=== PATIENT | female | born 1955 | race Caucasian/White ===

== ENCOUNTER → 2016-09-13 | Outpatient (CLI) | payer OTHER ==
[~2016-09-13] MED LIST: ASCAUNK PO; ASPCH81X PO; CALCCHW57 PO; CHOL100027 PO; DICL1GEL12 TOP; FLUOCINOLONE TOP; GLUC1CHW PO; LACT3000 PO; LEVO112T4 PO; LEVO150T PO; MECL1TAB42 PO; MULTTAB58 PO
[2016-09-13 17:35] LABS: THYROID STIMULATING HORMONE 0.108 uIu/ml (0.300-4.500)
== END | disposition home or self-care (01) ==
LOC: C.LABBC 13:35
PROVIDERS: ATTEND Internal Medicine Endocrinology, Diabetes & Metabolism
DX: E03.9 Hypothyroidism, unspecified (principal)

== ENCOUNTER → 2016-09-29 | Outpatient (CLI) | payer OTHER ==
--- NOTE | 2016-09-30 13:25 | MAMMOGRAPHY REPORT ---
BILATERAL DIGITAL SCREENING MAMMOGRAM TOMOSYNTHESIS WITH CAD: 09/29/2016 TECHNIQUE: Breast tomosynthesis in addition to standard 2D mammography was performed. Current study was also evaluated with a Computer Aided Detection (CAD) system. COMPARISON: Comparison is made to exams dated: 09/24/2015 mammogram, 07/23/2014 mammogram, 03/08/2012 mammogram, 03/03/2011 mammogram, 03/14/2013 mammogram, and 02/12/2010 mammogram - [facility] [address] BREAST COMPOSITION: The tissue of both breasts is almost entirely fatty. FINDINGS: No suspicious masses, calcifications, or areas of architectural distortion are noted in e ither breast. There has been no significant interval change compared to prior exams. Scattered bilat eral benign-appearing calcifications are not significantly changed. IMPRESSION: ACR BI-RADS CATEGORY 2: BENIGN There is no mammographic evidence of malignancy. A 1 year screening mammogram is recommended. The p atient will receive written notification of the results. Approximately 10% of breast cancers are not detected with mammography. A negative mammographic repor t should not delay biopsy if a clinically suggestive mass is present. Jazlyn Paredes M.D. ah/:09/30/2016 07:42:43 Storage Solutions Architect: Ángela NORIEGA(Antony)(Deshawn), [facility] [address] letter sent: Normal 1/2 BI-RADS Code: ACR BI-RADS Category 2: Benign
== END | disposition home or self-care (01) ==
LOC: C.MAMM 17:03
PROVIDERS: ATTEND Obstetrics & Gynecology
DX: Z12.31 Encounter for screening mammogram for malignant neoplasm of breast (principal)

== ENCOUNTER → 2016-11-09 | Outpatient (CLI) | payer OTHER ==
[2016-11-09 11:19] LABS: THYROID STIMULATING HORMONE 1.09 uIu/ml (0.300-4.500)
== END | disposition home or self-care (01) ==
LOC: C.LABBC 08:31
PROVIDERS: ATTEND Physician Assistant
DX: E03.9 Hypothyroidism, unspecified (principal)

== ENCOUNTER → 2016-12-01 | Outpatient (CLI) | payer OTHER | END | disposition home or self-care (01) | LOC: C.PAPS 12:21 | PROVIDERS: ATTEND Obstetrics & Gynecology | DX: Z12.4 Encounter for screening for malignant neoplasm of cervix (principal) ==

== ENCOUNTER → 2017-02-17 | Outpatient (CLI) | payer OTHER ==
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
== END | disposition home or self-care (01) ==
LOC: C.RADBC 11:02
PROVIDERS: ATTEND Physician Assistant
DX: M79.672 Pain in left foot (principal)

== ENCOUNTER → 2017-02-25 | Outpatient (CLI) | payer OTHER ==
[2017-02-25 16:39] LABS: MEAN CELL VOLUME 92.4 fL (80-100); MEAN CORPUSCULAR HEMOGLOBIN 30.9 pg (25-34); MEAN CORPUSCULAR HGB CONC 33.5 g/dl (32-36); MEAN PLATELET VOLUME 11.5 fL (7.4-10.4); PLATELET COUNT 199 K/uL (130-400); RED BLOOD COUNT 4.33 M/uL (4.2-5.4); WHITE BLOOD COUNT 7.07 K/uL (4.8-10.8)
[2017-02-25 16:50] LABS: BLOOD UREA NITROGEN 14 mg/dl (7-18); BUN/CREATININE RATIO 15.4 (10-20); CALCIUM 9.1 mg/dl (8.5-10.1); CARBON DIOXIDE 30 mmol/L (21-32); CHLORIDE 104 mmol/L (98-107); GLUCOSE 102 mg/dl (70-99); POTASSIUM 3.8 mmol/L (3.5-5.1); SODIUM 141 mmol/L (136-145)
== END | disposition home or self-care (01) ==
LOC: C.LABBC 14:36
PROVIDERS: ATTEND Surgery
DX: D12.6 Benign neoplasm of colon, unspecified (principal); Z01.818 Encounter for other preprocedural examination

== ENCOUNTER → 2017-03-28 | Day surgery (SDC) | payer OTHER ==
[2017-03-07 08:14] VITALS: Ht 154.9 cm; Wt 83.4 kg
[~2017-03-28] VITALS: Ht 154.9 cm; Wt 83.4 kg
[~2017-03-28] MED LIST changes: -ASCAUNK PO; +ATROPINE SULFATE 0.1 MG/ML 5ML SYR IV PRN; +EpHEDrine SULFATE INJ 50 MG/ML AMP IV PRN; -FLUOCINOLONE TOP; +LACTATED RINGER'S 1000ML 1,000 ML IV SCH; -LEVO150T PO; +LIDOCAINE HCL 2% 2 ML VIAL (20MG/ML) ONE; +PROPOFOL IV EMULSION 10 MG/ML 20 ML VIAL IV ONE
[2017-03-28 07:34] VITALS: BP 116/56; PULSE 46; TEMP 36.8; O2SAT 100
--- NOTE | 2017-03-28 08:32 | History & Physical Bridge Note ---
H&P Re-Evaluation Bridge Note: I have examined the patient, reviewed the History & Physical and in the interval since the performance of the History & Physical I have noted the following changes of clinical significance: No changes noted
--- NOTE | 2017-03-28 09:24 | GI REPORT ---
Procedure Date: 03/28/2017 8:41 AM Procedure: Colonoscopy Indications: Family history of colon cancer in a first-degree relative, Personal history of colonic polyps Medicines: Propofol per Anesthesia Complications: No immediate complications. Estimated Blood Loss: Estimated blood loss: none. Procedure: Pre-Anesthesia Assessment: - The risks and benefits of the procedure and the sedation options and risks were discussed with the patient. All questions were answered and informed consent was obtained. - Patient identification and proposed procedure were verified prior to the procedure by the physician, the nurse and the land inspector. The procedure was verified in the pre-procedure area in the procedure room. - ASA Grade Assessment: II - A patient with mild systemic disease. After I obtained informed consent, the scope was passed under direct vision. Throughout the procedure, the patient's blood pressure, pulse, and oxygen saturations were monitored continuously. The On-site loaner was introduced through the anus and advanced to the cecum, identified by appendiceal orifice and ileocecal valve. The colonoscopy was performed without difficulty. The patient tolerated the procedure well. The quality of the bowel preparation was good. Findings: The digital rectal exam was normal. The colon (entire examined portion) appeared normal. Impression: - The entire examined colon is normal. - No specimens collected. Recommendation: - Discharge patient to home. - Repeat colonoscopy in 5 years for surveillance. - Return to my office in 2 weeks if any questions. Wallace Douglas M.D. Wallace Douglas MD 03/28/2017 9:22:59 AM This report has been signed electronically. Note Initiated On: 03/28/2017 8:41 AM I attest to the content of the Intraoperative Record and orders documented therein, exceptions below
[2017-03-28 09:55] VITALS: BP 108/49; PULSE 60; TEMP 36.6; O2SAT 99
--- NOTE | 2017-03-28 10:10 | Anesthesiology Progress Note ---
Anesthesia Post Op Note Date & Time Mar 28, 2017 at 10:10 Vital Signs Pain Intensity: 0 Vital Signs Past 12 Hours Date Time Temp Pulse Resp B/P (MAP) Pulse Ox O2 Delivery O2 Flow Rate FiO2 03/28/17 09:45 36.4 64 17 113/52 100 Nasal Cannula 2 03/28/17 09:35 58 14 104/48 100 Nasal Cannula 2 03/28/17 09:27 36.6 61 18 111/62 100 Nasal Cannula 2 03/28/17 07:34 36.8 46 16 116/56 (76) 100 Room Air Notes Mental Status: alert / awake / arousable, participated in evaluation Pt Amnestic to Procedure: Yes Nausea / Vomiting: adequately controlled Pain: adequately controlled Airway Patency, RR, SpO2: stable & adequate BP & HR: stable & adequate Hydration State: stable & adequate Anesthetic Complications: no major complications apparent
[2017-03-28 10:30] VITALS: BP 107/44; PULSE 60; TEMP 36.3; O2SAT 95
[2017-03-28 10:55] VITALS: BP 121/53; PULSE 62; TEMP 36.6; O2SAT 98
--- NOTE | 2017-03-28 11:06 | Discharge Instructions ---
Endoscopy Patient Instructions Date / Procedure(s) Performed Mar 28, 2017. Colonoscopy Allergy Information Coded Allergies: Amoxicillin (Verified Allergy, Severe, HIVES, TROUBLE BREATHING, 03/28/17) NSAIDs (Verified Allergy, Severe, RESP FAILURE, 03/28/17) Penicillins (Verified Allergy, Severe, RESP FAILURE, 03/28/17) Ibuprofen (Verified Allergy, Intermediate, RASH, 03/28/17) Shrimp (Verified Allergy, Intermediate, Lip/Facial Swelling, 03/28/17) Pt reported allergy to RD during 03/29 visit. Stated that she does sometimes eat shrimp. Oxycodone (Verified Adverse Reaction, Severe, NAUSEA, 03/28/17) Discharge Date / Findings Mar 28, 2017. Normal colon Provider Instructions Activity Restrictions - No exercising or heavy lifting for 24 hours. - Do not drink alcohol the day of the procedure. - Do not drive a car or operate machinery until the day after the procedure. - Do not make any important decisions or sign important papers in 24 hours after the procedure. Following Day: - Return to full activity which may include returning to work/school. Diet Start your diet with liquids and light foods (jello, soup, juice, toast). Then eat your usual diet if not nauseated. Treatment For Common After Affects For mild abdominal pain, bloating, or excessive gas: - Rest - Eat lightly - Lie on right side Follow-Up Information Follow-up with as scheduled Anesthesia Information What You Should Know You have had a procedure that required some medicine to reduce anxiety and discomfort. This treatment is called moderate sedation. After receiving the treatment, you may be sleepy, but you will be able to breathe on your own. The effects of the treatment may last for several hours. Follow these instructions along with Activity/Diet recommendations noted above: * Do NOT do anything where dizziness or clumsiness would be dangerous. * Rest quietly at home today, then you can be up and about tomorrow. * Have a responsible person stay with you the rest of today. * You may have had an I.V. today. If so, you may take the dressing off later today. Recommendations Call your doctor if: * Trouble breathing * Continuous vomiting for more than 24 hours * Temperature above 101 degrees * Severe abdominal pain or bloating * Pain not relieved by pain medicine ordered * There is increased drainage or redness from any incision * A large amount of rectal bleeding greater than 2-3 tablespoons. (If you had a polyp/s removed or have hemorrhoids, a small amount of blood - from the rectum is to be expected.) * You have any unanswered questions or concerns. IN THE EVENT OF A SERIOUS EMERGENCY, GO TO THE NEAREST EMERGENCY ROOM Your discharge instructions were prepared by provider Wallace Douglas. Patient Instructions Signature Page Dee Back Patient (or Guardian) Signature/Date: I have read and understand the instructions given to me by my caregivers. Caregiver/RN/Doctor Signature/Date: The above-named patient and/or guardian has received patient instructions on this date. + Original Patient Signature Page (only) stays with chart. Please make copy for patient.
== END | disposition home or self-care (01) ==
LOC: C.ACU 07:01
PROVIDERS: ATTEND Surgery
DX: Z86.010 Personal history of colon polyps (principal); Z80.0 Family history of malignant neoplasm of digestive organs; K21.9 Gastro-esophageal reflux disease without esophagitis; F32.9 Major depressive disorder, single episode, unspecified; E03.9 Hypothyroidism, unspecified; E66.9 Obesity, unspecified; M17.10 Unilateral primary osteoarthritis, unspecified knee; Z79.82 Long term (current) use of aspirin; Z87.891 Personal history of nicotine dependence

== ENCOUNTER → 2017-06-14 | Outpatient (CLI) | payer OTHER ==
[~2017-06-14] MED LIST changes: -ATROPINE SULFATE 0.1 MG/ML 5ML SYR IV PRN; -EpHEDrine SULFATE INJ 50 MG/ML AMP IV PRN; -LACTATED RINGER'S 1000ML 1,000 ML IV SCH; -LIDOCAINE HCL 2% 2 ML VIAL (20MG/ML) ONE; -PROPOFOL IV EMULSION 10 MG/ML 20 ML VIAL IV ONE
--- NOTE | 2017-06-14 12:52 | DIAGNOSTIC IMAGING REPORT ---
L-SPINE MIN 4 VIEWS ROUTINE HISTORY: 61 years-old Female LUMBAR FACET SYNDROME COMPARISON: CT abdomen and pelvis 11/16/2015 TECHNIQUE: 5 views of the lumbar spine FINDINGS: The ribs at T12 are hypoplastic. Degenerative changes are seen within the hips and SI joints. Cholecystectomy clips noted. There is no acute fracture or dislocation. Moderate intervertebral disc space narrowing with prominent endplate spurring redemonstrated at T11-T12 and to lesser extent at T10-T11. No compression deformity. Moderate intervertebral disc space narrowing at L5-S1. Moderate facet arthrosis of the lower lumbar levels. IMPRESSION: 1. No acute fracture or subluxation. 2. Degenerative changes as above. The above report was generated using voice recognition software. It may contain grammatical, syntax or spelling errors. Electronically signed by: Tai Bojorquez M.D. 06/14/2017 12:50 PM Dictated Date/Time: 06/14/2017 12:47 PM
== END | disposition home or self-care (01) ==
LOC: C.RADBC 12:29
PROVIDERS: ATTEND Physician Assistant Medical
DX: M53.86 Other specified dorsopathies, lumbar region (principal)

== ENCOUNTER → 2017-07-14 | Outpatient (CLI) | payer OTHER ==
[2017-07-14 14:59] LABS: THYROID STIMULATING HORMONE 0.115 uIu/ml (0.300-4.500)
== END | disposition home or self-care (01) ==
LOC: C.LABBC 11:10
PROVIDERS: ATTEND Physician Assistant
DX: E03.9 Hypothyroidism, unspecified (principal)

== ENCOUNTER → 2017-09-23 | Outpatient (CLI) | payer OTHER | END | disposition home or self-care (01) | LOC: C.LABBC 11:01 | PROVIDERS: ATTEND Physician Assistant | DX: E03.9 Hypothyroidism, unspecified (principal) ==

== ENCOUNTER → 2017-12-06 | Outpatient (CLI) | payer OTHER | END | disposition home or self-care (01) | LOC: C.LABBC 09:38 | PROVIDERS: ATTEND Physician Assistant | DX: Z00.00 Encounter for general adult medical examination without abnormal findings (principal) ==

== ENCOUNTER → 2017-12-07 | Outpatient (CLI) | payer OTHER | END | disposition home or self-care (01) | LOC: C.MAMM 17:07 | PROVIDERS: ATTEND Obstetrics & Gynecology | DX: Z12.31 Encounter for screening mammogram for malignant neoplasm of breast (principal) ==

== ENCOUNTER → 2017-12-08 | Outpatient (CLI) | payer OTHER | END | disposition home or self-care (01) | LOC: C.PAPS 08:44 | PROVIDERS: ATTEND Obstetrics & Gynecology | DX: Z12.4 Encounter for screening for malignant neoplasm of cervix (principal) ==

== ENCOUNTER → 2017-12-09 | Outpatient (CLI) | payer OTHER ==
--- NOTE | 2017-12-09 19:11 | DIAGNOSTIC IMAGING REPORT ---
PELVIC COMPLETE NON OB HISTORY: 62 years-old Female ABNORMAL FINDINGS ON EXAMINATION OF GENITOURINARY ORGANS COMPARISON: Pelvic ultrasound 11/16/2015 TECHNIQUE: Multiple real-time sonographic images of the pelvis were obtained both transabdominally and transvaginally assessing grayscale appearance, color and spectral flow FINDINGS: TRANSABDOMINAL: Uterus measures 5.6 x 2.6 x 4.6 cm. TRANSVAGINAL: Retroflexed uterus with endometrial calcifications are noted. Endometrium measures 0.3 cm. No myometrial mass lesions are identified. Nabothian cyst of the cervix. Right ovary measures 2.6 x 1.6 x 1.9 cm and also demonstrates scattered calcifications. Arterial inflow to the right ovary is noted. Focal area of increased echogenicity about the right ovary measures up to 0.8 cm which is indeterminate. Left ovary measures 2.5 x 1.1 x 1.5 cm and also demonstrates scattered calcifications. Arterial inflow is seen within the left ovary. Small amount of free pelvic fluid. Tubular structure adjacent to the left adnexum measures up to 2.1 x 0.6 x 0.4 cm. IMPRESSION: 1. Suspected left-sided hydrosalpinx of unknown etiology. 2. No evidence of endometrial thickening. Uterus and ovaries appear unremarkable for patient age. 3. Small amount of free pelvic fluid. The above report was generated using voice recognition software. It may contain grammatical, syntax or spelling errors. Electronically signed by: Tai Bojorquez M.D. 12/09/2017 7:10 PM Dictated Date/Time: 12/09/2017 7:07 PM
== END | disposition home or self-care (01) ==
LOC: C.ULTR 17:39
PROVIDERS: ATTEND Obstetrics & Gynecology
DX: R89.9 Unspecified abnormal finding in specimens from other organs, systems and tissues (principal)

== ENCOUNTER → 2018-03-20 | Outpatient (CLI) | payer OTHER ==
[~2018-03-20] MED LIST changes: +CLR10 PO
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
== END | disposition home or self-care (01) ==
LOC: C.MRIBC 11:31
PROVIDERS: ATTEND Anesthesiology
DX: M47.26 Other spondylosis with radiculopathy, lumbar region (principal); M48.061 Spinal stenosis, lumbar region without neurogenic claudication; M43.16 Spondylolisthesis, lumbar region